=== PATIENT | female | born 1970 ===

== ENCOUNTER → 2021-03-22 | Outpatient (CLI) | payer OTHER | LOC: COL.RAD 12:16 | DX: Q21.2 Atrioventricular septal defect (principal); R51.9 Headache, unspecified | CPT/HCPCS: A9585 ==

== ENCOUNTER 2022-03-14 07:33 | Outpatient (CLI) | payer OTHER ==
[~2022-03-14] VITALS: Ht 162.6 cm; Wt 83.5 kg
[2022-03-14] MEDS ORDERED: RETIN-A CR0.025 45GM TP (08:23)
[2022-03-14 08:28] VITALS: BP 117/82; PULSE 77; TEMP 98.2
[2022-03-14 08:31] LABS: BASO # 0.1 K/mm3 (0.0-0.2); EOS # 0.2 K/mm3 (0.0-0.7); EOS % 3.2 % (0.0-4.0); GRAN # 4.1 K/mm3 (1.4-6.5); GRAN % 65.6 % (42.2-75.2); HEMATOCRIT 38.9 % (37.0-47.0); HEMOGLOBIN 13.1 g/dl (12.5-16.0); LYMPH # 1.4 K/mm3 (1.2-3.4); MEAN CELL VOLUME 92 fl (80.0-100.0); MEAN CORPUSCULAR HEMOGLOBIN 31 pg (27-31); MEAN CORPUSCULAR HGB CONC 34 g/dl (33.0-37.0); MEAN PLATELET VOLUME 10.6 fl (7.4-10.4); MONO # 0.4 K/mm3 (0.1-0.6); MONO % 6.7 % (1.7-9.3); PLATELET COUNT 307 K/mm3 (130-400); RED BLOOD COUNT 4.25 M/mm3 (4.10-5.30); REDCELL DISTRIBUTION WIDTH-CV 12.8 % (11.5-14.5)
[2022-03-14] MEDS ORDERED: ADDERALL XR30 MG PO (08:35)
[2022-03-14 08:41] LABS: INR 0.9 (0.8-3.0); PROTHROMBIN TIME 10.8 SECONDS (9.7-12.8)
[2022-03-14 08:47] LABS: CALCIUM 8.4 mg/dL (8.4-10.2); CREATININE, serum 0.75 mg/dL (0.57-1.11); POTASSIUM 4.1 mmol/L (3.5-4.5)
[2022-03-14] MEDS ORDERED: VITAMIN C500 MG PO (08:48)
[2022-03-14] MEDS ORDERED: CELEBREX 1100 MG/CAP PO (08:48)
[2022-03-14] MEDS ORDERED: ASPIRIN E.C. 8181 MG PO (08:48)
[2022-03-14] MEDS ORDERED: VITAMIND3 5000 PO (08:49)
[2022-03-14] MEDS ORDERED: VALIUM 5MG T5 MG/TAB PO (08:49)
[2022-03-14] MEDS ORDERED: PROZAC 20MG20 MG PO (08:50)
[2022-03-14] MEDS ORDERED: LASIX 40MG TABL40 MG PO (08:50)
[2022-03-14] MEDS ORDERED: MELATONIN5 M1 SL (08:51)
[2022-03-14] MEDS ORDERED: ROBAXIN 75750 MG/TAB PO (08:51)
[2022-03-14] MEDS ORDERED: IBU800 M1 PO (08:51)
[2022-03-14] MEDS ORDERED: IMITREX 5MGNAS NS (08:52)
[2022-03-14] MEDS ORDERED: METROGEL1% TOP (08:52)
[2022-03-14] MEDS ORDERED: TYLENOL 500MG500 MG PO (08:53)
[2022-03-14 10:15] VITALS: BP 110/78; BP 117/82; PULSE 71
[2022-03-14 10:30] VITALS: BP 121/70; PULSE 78
[2022-03-14 10:45] VITALS: BP 107/74; PULSE 85
--- NOTE | 2022-03-14 10:50 | NUR ---
Pt alert, tolerating PO without difficulty. She is stable on feet in room. DC instructions reviewed with pt, she expresses understanding. IV was removed and site wrapped with coban.
--- NOTE | 2022-03-14 10:55 | NUR ---
Pt assisted out by wheelchair to entrance to meet her ride home. She leaves with belongings and DC papers.
== END 2022-03-14 10:55 | disposition home or self-care (01) ==
LOC: COL.RAD 07:33
PROVIDERS: Internal Medicine Adult Congenital Heart Disease
DX: I08.3 Combined rheumatic disorders of mitral, aortic and tricuspid valves (principal); Q21.1 Atrial septal defect
CPT/HCPCS: J2704

== ENCOUNTER → 2022-03-16 | Outpatient (CLI) | payer OTHER ==
[~2022-03-16] MED LIST: ADDERALL XR30 MG PO; ASPIRIN E.C. 8181 MG PO; CELEBREX 1100 MG/CAP PO; IBU800 M1 PO; IMITREX 5MGNAS NS; LASIX 40MG TABL40 MG PO; MELATONIN5 M1 SL; METROGEL1% TOP; PROZAC 20MG20 MG PO; RETIN-A CR0.025 45GM TP; ROBAXIN 75750 MG/TAB PO; TYLENOL 500MG500 MG PO; VALIUM 5MG T5 MG/TAB PO; VITAMIN C500 MG PO; VITAMIND3 5000 PO
== END ==
LOC: COL.RAD 08:31
DX: S79.811 Other specified injuries of right hip (principal); X58.XXXD Exposure to other specified factors, subsequent encounter
CPT/HCPCS: J3301; Q9967

== ENCOUNTER 2022-05-16 11:15 | Outpatient (RCR) | payer OTHER | END 2022-05-21 | disposition home or self-care (01) | LOC: WSC | DX: M25.851 Other specified joint disorders, right hip (principal) ==

== ENCOUNTER 2022-06-19 13:30 | Outpatient (RCR) | payer OTHER | END 2022-06-21 | disposition home or self-care (01) | LOC: WSPT | DX: M25.851 Other specified joint disorders, right hip (principal) ==

== ENCOUNTER → 2022-12-19 | Outpatient (RCR) | payer OTHER | END | disposition home or self-care (01) | LOC: WSPT | DX: M25.551 Pain in right hip (principal); M25.552 Pain in left hip ==

== ENCOUNTER 2023-01-18 09:00 | Outpatient (RCR) | payer OTHER | END 2023-01-19 | disposition home or self-care (01) | LOC: WSPT | DX: M25.559 Pain in unspecified hip (principal) ==

== ENCOUNTER 2023-02-15 08:15 | Outpatient (RCR) | payer OTHER | END 2023-02-18 | disposition home or self-care (01) | LOC: WSPT | DX: M25.551 Pain in right hip (principal) ==

== ENCOUNTER → 2023-06-21 | Outpatient (RCR) | payer OTHER | END | disposition home or self-care (01) | LOC: WSC → WSPT 05-22 07:48 → WSC 06-07 09:00 → WSPT 06-11 14:15 → WSC 08:15 | DX: M25.551 Pain in right hip (principal); Z98.890 Other specified postprocedural states ==

== ENCOUNTER 2023-10-18 08:15 | Outpatient (RCR) | payer OTHER | END 2023-10-21 | disposition home or self-care (01) | LOC: WSPT | DX: M16.11 Unilateral primary osteoarthritis, right hip (principal); Z96.641 Presence of right artificial hip joint ==

== ENCOUNTER 2024-04-17 12:45 | Outpatient (RCR) | payer OTHER | END 2024-04-20 | LOC: WSPT | DX: M25.551 Pain in right hip (principal) ==

== ENCOUNTER 2024-05-20 09:00 | Outpatient (RCR) | payer OTHER | END 2024-05-21 | disposition home or self-care (01) | LOC: WSPT | DX: M25.551 Pain in right hip (principal) ==

== ENCOUNTER 2024-05-27 08:15 | Outpatient (RCR) | payer OTHER | END 2024-06-21 | disposition home or self-care (01) | LOC: WSPT | DX: M25.551 Pain in right hip (principal) ==

== ENCOUNTER 2024-09-10 09:02 | Outpatient (RCR) | payer OTHER | END 2024-09-20 | LOC: WSPT | DX: Z98.890 Other specified postprocedural states (principal) ==